=== PATIENT | female | born 1995 | race Caucasian/White ===

== ENCOUNTER → 2018-02-02 | Outpatient (REF) | payer OTHER ==
[2018-02-02 13:06] LABS: HCG, SERUM QUANTITATIVE < 1.0 MIU/ML
== END ==
LOC: M LAB REF 12:19
DX: N64.4 Mastodynia (principal)

== ENCOUNTER → 2019-03-29 | Outpatient (CLI) | payer OTHER ==
[~2019-03-29] MED LIST: ANUS2.5C2 EXT; DOCU10CA PO; DOCU5LIQ PO; HYDR1SOL PO; IBUP-1114 PO; IBUP100S44 PO; LANOOIN21 TOP; MAPA500T2 PO; MILK10SU PO; MOM30SS PO; MOTR200T44 PO; PRENTAB9 PO; STUATAB PO; TYLE80DR13 PO; VITAPRTA PO
[2019-03-29 11:26] LABS: BASO # 0.1 10^3/uL (0.0-0.2); BASO % 0.7 % (0.0-1.0); EOS # 0.2 10^3/uL (0.0-0.5); EOS % 2.2 % (0.0-3.0); HEMATOCRIT 37.7 % (36.0-47.0); LYMPH # 2.1 10^3/uL (1.5-5.0); LYMPH % 25.8 % (24.0-44.0); MEAN CORPUSCULAR HEMOGLOBIN 30.2 pg (27.0-33.0); MEAN CORPUSCULAR HGB CONC 34.5 g/dl (32.0-36.5); MEAN CORPUSCULAR VOLUME 87.5 fl (80.0-96.0); MONO # 0.5 10^3/uL (0.0-0.8); NEUTROPHILS # 5.3 10^3/uL (1.5-8.5); NEUTROPHILS % 64.9 % (36.0-66.0); PLATELET COUNT, AUTOMATED 288 10^3/uL (150-450); RED BLOOD COUNT 4.31 10^6/uL (4.00-5.40); WHITE BLOOD COUNT 8.1 10^3/uL (4.0-10.0)
[2019-03-29 12:39] LABS: HEPATITIS C VIRUS ABY INDEX 0.1 INDEX (<0.8); HIV 1&2 SCREEN CENTAUR NEGATIVE (NEGATIVE); RUBELLA IgG QUALITATIVE IMMUNE (IMMUNE)
[2019-03-29 13:26] LABS: CHLAMYDIA DNA AMPLIFICATION NEGATIVE (NEGATIVE); GC DNA AMPLIFICATION NEGATIVE (NEGATIVE)
== END ==
LOC: M SMT 09:07
PROVIDERS: ATTEND Specialist
DX: Z34.81 Encounter for supervision of other normal pregnancy, first trimester (principal); Z3A.00 Weeks of gestation of pregnancy not specified

== ENCOUNTER → 2019-06-08 | Outpatient (CLI) | payer OTHER ==
--- NOTE | 2019-06-08 11:19 | REP ---
OB ULTRASOUND: Real-time sonographic evaluation of the gravid uterus is performed. There is a single living intrauterine gestation with an estimated gestational age 18 weeks 5 days, EDC 11/04/2019. Today's measurements indicate appropriate growth. Biometry and Growth: BPD 45 mm = 19 weeks 3 days, 70th percentile HC 153 mm = 18 weeks 2 days, 37th percentile AC 142 mm = 19 weeks 4 days, 68th percentile FL 29 mm = 18 weeks 6 days, 54th percentile HC/AC ratio 1.08 within normal range. Estimated weight 276 grams, 63rd percentile. SEEN/GROSSLY UNREMARKABLE Lateral ventricles Yes Posterior fossa Yes Upper lip Yes Four-chamber heart Yes LVOT Yes RVOT Yes Stomach Yes Cord insertion Yes Three vessel cord Yes Kidneys Yes Bladder Yes Spine Yes Cervical length: Closed and measures 4.4 cm in length. heart rate: 153 beats per minute. position: Transverse with head toward the maternal left side. Placenta: Posterior and grade 0 with no previa or abruption. Amniotic fluid: Within normal limits. Electronically Signed by Loco Kaplan MD 06/08/2019 12:48 P
== END ==
LOC: M RAD 08:45
PROVIDERS: ATTEND Advanced Practice Midwife
DX: Z34.82 Encounter for supervision of other normal pregnancy, second trimester (principal); Z3A.18 18 weeks gestation of pregnancy

== ENCOUNTER → 2019-07-28 | Outpatient (CLI) | payer OTHER ==
[2019-07-28 13:34] LABS: BASO # 0.1 10^3/uL (0.0-0.2); BASO % 0.5 % (0.0-1.0); EOS # 0.2 10^3/uL (0.0-0.5); EOS % 1.5 % (0.0-3.0); HEMATOCRIT 32.4 % (36.0-47.0); HEMOGLOBIN 10.3 g/dl (12.0-15.5); LYMPH # 2.3 10^3/uL (1.5-5.0); LYMPH % 16.9 % (24.0-44.0); MEAN CORPUSCULAR HEMOGLOBIN 29.4 pg (27.0-33.0); MEAN CORPUSCULAR HGB CONC 31.8 g/dl (32.0-36.5); MEAN CORPUSCULAR VOLUME 92.6 fl (80.0-96.0); MONO # 0.7 10^3/uL (0.0-0.8); MONO % 5.4 % (0.0-5.0); NEUTROPHILS # 10.1 10^3/uL (1.5-8.5); PLATELET COUNT, AUTOMATED 299 10^3/uL (150-450); WHITE BLOOD COUNT 13.5 10^3/uL (4.0-10.0)
== END ==
LOC: M PLALAB 09:44
PROVIDERS: ATTEND Advanced Practice Midwife
DX: Z34.92 Encounter for supervision of normal pregnancy, unspecified, second trimester (principal)

== ENCOUNTER 2019-09-04 04:36 | Outpatient (CLI) | payer OTHER ==
[~2019-09-04] VITALS: Ht 152.4 cm; Wt 60.4 kg
[2019-09-04] MEDS ORDERED: TUMS750C5 PO (04:57)
[2019-09-04 05:00] VITALS: BP 92/50
[2019-09-04 05:31] LABS: APPEARANCE, URINE CLEAR (CLEAR); BACTERIA, URINE AUTO 1+ (NEGATIVE); BILIRUBIN, URINE AUTO NEGATIVE (NEGATIVE); BLOOD, URINE BLOOD NEGATIVE (NEGATIVE); COLOR, URINE YELLOW (YELLOW); GLUCOSE, URINE (UA) AUTO NEGATIVE (NEGATIVE); KETONE, URINE AUTO NEGATIVE (NEGATIVE); LEUKOCYTE ESTERASE, URINE AUTO TRACE (NEGATIVE); MUCUS, URINE SMALL (NEGATIVE); NITRITE, URINE AUTO NEGATIVE (NEGATIVE); PROTEIN, URINE AUTO NEGATIVE (NEGATIVE); RBC, URINE AUTO 1 /HPF (0-3); SQUAMOUS EPITHELIAL CELL UR AU 4 /HPF (0-6); UROBILINOGEN, URINE AUTO 0.2 mg/dL (0.0-2.0); WBC, URINE AUTO 5 /HPF (0-3)
--- NOTE | 2019-09-04 05:54 | IPNPDOC ---
Text Note Date of Service The patient was seen on 09/04/19. NOTE Outpatient 24yo QUEENIE 11/04/2019. Presents @ 31w2d with complaints of nausea, vomiting, diarrhea with low back pain that radiates to groin. Denies bleeding, LOF. Denies recent IC or unusual behavior Writhing in bed, moaning upon entry to room. Abdomen soft, gravid, nontender to palpation No UC on monitor FH 145, Cat I tracing Spec exam, cervix visually LTC. FFN obtained SVE LTC, presenting part OOP UA/C&S obtained. Labs ordered Renal scan ordered. VS,Fishbone, I+O VS, Fishbone, I+O Vital Signs Date Time Temp Pulse Resp B/P (MAP) Pulse Ox O2 Delivery O2 Flow Rate FiO2 09/04/19 05:00 98.4 113 18 92/50 (64) Ashley Whitehead CNM Sep 04, 2019 05:54
[2019-09-04 06:09] LABS: HEMATOCRIT 28.4 % (36.0-47.0); MEAN CORPUSCULAR HEMOGLOBIN 27.1 pg (27.0-33.0); MEAN CORPUSCULAR HGB CONC 31.7 g/dl (32.0-36.5); MEAN CORPUSCULAR VOLUME 85.5 fl (80.0-96.0); PLATELET COUNT, AUTOMATED 263 10^3/uL (150-450); RED BLOOD COUNT 3.32 10^6/uL (4.00-5.40); WHITE BLOOD COUNT 11.7 10^3/uL (4.0-10.0)
[2019-09-04] MEDS ORDERED: LACTATED RINGER'S 1000 ML IV ONE (06:15)
[2019-09-04 06:39] LABS: ALBUMIN 2.4 GM/DL (3.2-5.2); ALT/SGPT 16 U/L (12-78); BILIRUBIN,TOTAL 0.2 MG/DL (0.2-1.0); BLOOD UREA NITROGEN 5 MG/DL (7-18); CALCIUM LEVEL 8.1 MG/DL (8.5-10.1); CARBON DIOXIDE LEVEL 22 MEQ/L (21-32); CHLORIDE LEVEL 109 MEQ/L (98-107); CREATININE FOR GFR 0.47 MG/DL (0.55-1.30); GLOMERULAR FILTRATION RATE > 60.0 (>60); GLUCOSE, FASTING 89 MG/DL (70-100); POTASSIUM SERUM 3.9 MEQ/L (3.5-5.1); SODIUM LEVEL 139 MEQ/L (136-145); TOTAL PROTEIN 5.9 GM/DL (6.4-8.2)
[2019-09-04 06:55] VITALS: BP 99/53
--- NOTE | 2019-09-04 07:05 | REPVR ---
PROCEDURE INFORMATION: Exam: US Retroperitoneal Limited, Kidneys Exam date and time: 09/04/2019 6:30 AM Age: 24 years old Clinical indication: Abdominal pain; Flank; Other: Bilateral; ; Additional info: Back pain TECHNIQUE: Imaging protocol: Real-time ultrasound of the retroperitoneum with image documentation. Examination was focused on the kidneys. COMPARISON: No relevant prior studies available. FINDINGS: Right kidney: Moderate right hydronephrosis. Right kidney measures 11.7 cm in length. Asymmetric renal resistive indices with the left renal resistive index 0.75 in the right renal resistive index 0.59. Left kidney: Left kidney measures 11.1 cm in length. Mild left hydronephrosis. Uterus: Intrauterine gestation cephalic presentation with documented heart rate of 139 bpm. Bladder: Lobulated morphology of the nondistended bladder. Left ureteral jet demonstrated on color flow imaging. A right ureteral jet is not clearly visualized. IMPRESSION: Moderate right hydronephrosis. Electronically signed by: Joshua Montes De Oca On 09/04/2019 07:05:10 AM
[2019-09-04 07:35] VITALS: BP 104/67
[2019-09-04 10:44] LABS: HEMOGLOBIN A1c 4.7 %
== END 2019-09-04 08:27 | disposition home or self-care (01) ==
LOC: M LDO 04:36
PROVIDERS: ATTEND Advanced Practice Midwife
DX: O21.9 Vomiting of pregnancy, unspecified (principal); O99.613 Diseases of the digestive system complicating pregnancy, third trimester; R19.7 Diarrhea, unspecified

== ENCOUNTER → 2019-10-06 | Outpatient (REF) | payer OTHER ==
[~2019-10-06] MED LIST changes: +TUMS750C5 PO
== END ==
LOC: M SFHCWAGY 12:51
PROVIDERS: ATTEND Advanced Practice Midwife
DX: O09.43 Supervision of pregnancy with grand multiparity, third trimester (principal)

== ENCOUNTER → 2019-10-06 | Outpatient (CLI) | payer OTHER ==
--- NOTE | 2019-10-06 11:42 | REP ---
Clinical: Growth evaluation. Comparison: 06/08/2019 . Findings: Examination demonstrates a single live intrauterine in cephalic presentation. motion is identified by technologist. Placenta is noted posterior and grade I I without evidence for placenta previa or abruption. Amniotic fluid volume is normal. Gestational age by LMP 35 weeks 6 days with QUEENIE 11/04/2019 . Gestational age by current measurements 34 weeks 6 days with QUEENIE 11/11/2019 FHR equals 135 beats per minute. Estimated weight by current biometrical measurements 2670 grams ( 42nd percentile). Amniotic fluid index: 9.2 cm (7.7 - 24.9) Impression: single live advanced gestation in cephalic presentation demonstrating appropriate estimated weight.
== END ==
LOC: M WHC 10:35
PROVIDERS: ATTEND Advanced Practice Midwife
DX: O26.843 Uterine size-date discrepancy, third trimester (principal)

== ENCOUNTER 2019-10-08 17:30 | Outpatient (CLI) | payer OTHER ==
[~2019-10-08] VITALS: Ht 152.4 cm; Wt 60.4 kg
[2019-10-08 17:58] VITALS: BP 124/69
--- NOTE | 2019-10-08 19:05 | IPN ---
DATE: 10/08/2019 Herminia is a 24-year-old 8, para 4-0-3-4 at 36-1/7 weeks, estimated date of confinement (EDC) of 11/04/2019 based on last menstrual period, confirmed by first trimester ultrasound. She presents to labor and delivery today with report of contractions that started at 1430 and have become progressively more uncomfortable. She does deny leakage of fluid and vaginal bleeding. The fetus has been active. Her care was initiated at [facility] in the first trimester. course has been uncomplicated. OBSTETRICAL HISTORY: 1. March 2011: 40-6/7 weeks gestation, spontaneous vaginal delivery, 8 pound 13 ounce female. 2. May 2012: 39 weeks gestation, 8 pound 1 ounce male, spontaneous vaginal delivery. 3. July 2013: Miscarriage. 4. April: 38-2/7 weeks, 7 pound 15 ounce female, vaginal delivery following induction of labor. 5. April 2015: Spontaneous miscarriage. 6. January 2016: 38+ weeks, 6 pound 15 ounce male, spontaneous vaginal delivery. 7. January 2018: Spontaneous miscarriage. OBSTETRIC LABS: O positive, antibody screen, rubella immune, VDRL nonreactive. Urine culture no growth. Hepatitis B surface antigen negative, HIV negative. Hepatitis C antibody nonreactive. Gonorrhea and chlamydia negative. She had a normal gestational diabetic screening and her group B Streptococcus (GBS) is negative. PAST MEDICAL HISTORY: Childhood varicella. SURGERIES: Appendectomy. FAMILY HISTORY: Diabetes, heart disease and kidney disease. The patient is . She reports she is a nonsmoker. Denies alcohol and drug use. She does have a history of chlamydia in the past. She denies abuse, physical, sexual and emotional. ALLERGIES: No known drug allergies. PREMEDICATION: - vitamins OBJECTIVE: Temperature 99.4, pulse 104, respiration 18, blood pressure is 124/69. She is alert and oriented times three and she is talkative. heart rate is 155 with moderate variability, positive accelerations, negative decelerations. She has contraction every 2-6 minutes. They do palpate mild Sterile vaginal exam unchanged from office exam two days ago, 2 cm dilated, 50% effaced, -2 station, very posterior. ASSESSMENT: Intrauterine at 36-1/7 weeks. heart rate category one and not in active labor. PLAN: Discharge the patient home. She is to keep her next scheduled visit. I did review access to care, signs and symptoms of active labor, movement counts and danger signs to report. The patient has had her questions answered and is agreeable to discharge.
== END 2019-10-08 18:45 | disposition home or self-care (01) ==
LOC: M LDO 17:30
PROVIDERS: ATTEND Advanced Practice Midwife
DX: O47.03 False labor before 37 completed weeks of gestation, third trimester (principal); Z3A.36 36 weeks gestation of pregnancy

== ENCOUNTER 2019-10-23 17:30 | Inpatient (IN) | payer OTHER ==
[2019-10-23] VITALS (12 sets, daily range): BP systolic 109–122; BP diastolic 60–75
[~2019-10-23] VITALS: Ht 152.4 cm; Wt 62.1 kg
[2019-10-23] MEDS: LR 1,000 ML IV SCH ×2 (20:15→22:51)
[2019-10-23 20:46] LABS: HEMATOCRIT 32.8 % (36.0-47.0); HEMOGLOBIN 9.9 g/dl (12.0-15.5); MEAN CORPUSCULAR HEMOGLOBIN 23.3 pg (27.0-33.0); MEAN CORPUSCULAR HGB CONC 30.2 g/dl (32.0-36.5); MEAN CORPUSCULAR VOLUME 77.2 fl (80.0-96.0); PLATELET COUNT, AUTOMATED 324 10^3/uL (150-450); RED BLOOD COUNT 4.25 10^6/uL (4.00-5.40); WHITE BLOOD COUNT 16.2 10^3/uL (4.0-10.0)
--- NOTE | 2019-10-23 20:51 | HPE ---
DATE OF ADMISSION: 10/23/2019 A 24-year-old G8, P4-0-3-4 female at 38-2/7 weeks gestations by last menstrual period (LMP) consistent with 8-week ultrasound, estimated date of confinement (EDC) 11/04/2019, presents with regular contractions every 3-5 minutes since 5:30 a.m. on the day of admission. The contractions increased in intensity. She denies vaginal bleeding. There is good movement. CARE: With [facility]. She had no complications. OBSTETRICAL HISTORY: 1. In 2010, 41-week vaginal delivery, 8-pound 13-ounce female . 2. In 2011, A 39-week vaginal delivery 8-pound, 1-ounce male infant. 3. In 2013, a 37-week vaginal delivery, 7-pound 15-ounce female . 4. In 2015, 37-week vaginal delivery, 6-pound 15-ounce male . She has had three miscarriages as well. PAST MEDICAL HISTORY: Noncontributory. SURGICAL HISTORY: Appendectomy. ALLERGIES: None. SOCIAL HISTORY: Patient lives in [place], [place]. Patient is . She denies cigarettes, alcohol, or drug use. FAMILY HISTORY: Noncontributory. PHYSICAL EXAMINATION: Blood pressure is 121/74, pulse 106, afebrile. She appears uncomfortable. Head and neck exam normal. Lungs clear. Heart regular rate and rhythm. Abdomen nontender, gravid. heart tone category 1. Contractions every 3-5 minutes, moderate. Sterile vaginal exam: She is 4 cm, 70%, -2, posterior, soft, vertex. Extremities nontender. LABORATORY DATA: GBS negative. HIV negative. Diabetes screen normal. ASSESSMENT: A 24-year-old G8, P4-0-3-4 female at 38-2/7 weeks gestation presents in labor. PLAN: Patient is admitted on 10/23/2019.
[2019-10-23] MEDS ORDERED: FENTANYL 2MCG/ML ROPIVACAINE 0.2% IN 0.9% NACL 100ML IVBAG As Ordered ONE (21:13)
[2019-10-23] MEDS ORDERED: EPIDURAL COMMENT XX SCH (23:00)
[2019-10-23] MEDS ORDERED: ONDANSETRON 4MG/2ML VIAL (J2405) IV PRN (23:00)
[2019-10-23] MEDS ORDERED: EPIDURAL/PCA KEYS XX PRN (23:00)
[2019-10-23] MEDS ORDERED: LACTATED RINGER'S 1000 ML IV PRN (23:00)
[2019-10-23] MEDS ORDERED: OXYTOCIN DRIP 30 UNITS in IV 1 EA IV SCH (23:00)
[2019-10-23] MEDS ORDERED: NALOXONE INJ 0.4 MG/1 ML VIAL (J2310) IV PRN (23:00)
[2019-10-23] MEDS ORDERED: REFRIGERATOR IV KEYS XX PRN (23:00)
[2019-10-23] MEDS ORDERED: ePHEDrine SULFATE 25 MG/5 ML(5MG/ML) SYRINGE IV PRN (23:00)
[2019-10-23] MEDS ORDERED: diphenhydrAMINE 50MG/ML VIAL (J1200) IV PRN (23:00)
[2019-10-23] MEDS ORDERED: FENTANYL/ROPIVACAINE/NACL BAG 100 ML EPIDURAL SCH (23:00)
[2019-10-24] VITALS (24 sets, daily range): BP systolic 86–118; BP diastolic 50–68
[2019-10-24] MEDS: LR 1,000 ML IV SCH (05:00)
[2019-10-24] MEDS ORDERED: DOCUSATE SODIUM 100 MG CAP PO PRN (09:00)
[2019-10-24] MEDS ORDERED: METHYLERGONOVINE MALEATE 0.2 MG TAB PO PRN (09:00)
[2019-10-24] MEDS ORDERED: OXYTOCIN DRIP 30 UNITS in IV 1 EA IV ONE (09:00)
[2019-10-24] MEDS ORDERED: IBUPROFEN 600 MG TAB PO PRN (09:00)
[2019-10-24] MEDS ORDERED: DIBUCAINE 1% OINTMENT 30GM TOP PRN (09:00)
[2019-10-24] MEDS ORDERED: ONDANSETRON 4MG/2ML VIAL (J2405) IV PRN (09:00)
[2019-10-24] MEDS ORDERED: RHOGAM 300 MCG (1500 IU) INJ (J2790) IM SCH (09:00)
[2019-10-24] MEDS ORDERED: MEASLES,MUMPS,RUBELLA VACCINE INJ (MMR-II) (90707) SC SCH (09:00)
[2019-10-24] MEDS ORDERED: ACETAMINOPHEN 500 MG TAB PO PRN (09:00)
[2019-10-24] MEDS ORDERED: ACETAMINOPHEN TAB 650MG DOSE (2X325MG) PO PRN (09:00)
[2019-10-24] MEDS: PRENATAL VITAMINS CHEWABLE TABLET PO SCH (13:08)
[2019-10-24] MEDS: IBUPROFEN 800 MG TAB PO PRN (16:55)
--- NOTE | 2019-10-24 18:11 | DN ---
DATE: 10/24/2019 PREDELIVERY DIAGNOSIS: 38-3/7 weeks gestation, in labor. POSTDELIVERY DIAGNOSIS: Delivered. PROCEDURE: Spontaneous vaginal delivery. RETURNED GOODS SORTER: Jabier Quintero MD ANESTHESIA: Epidural. ESTIMATED BLOOD LOSS: 300 mL. FINDINGS: A 7-pound, 11-ounce female , scores 8 and 9. DELIVERY SUMMARY: After a short second stage of five minute, the patient had spontaneous delivery of a 7-pound, 11-ounce female , scores 8 and 9, under epidural anesthesia. There was no nuchal cord. The shoulders delivered with ease. The was handed to the mother and cried immediately. The cord was doubly clamped and cut. The placenta delivered spontaneously and appeared to be intact. The patient received IV pitocin immediately after delivery of the placenta. There were no vaginal lacerations. Sponge counts were correct.
[2019-10-25] MEDS: IBUPROFEN 800 MG TAB PO PRN (03:12)
[2019-10-25 06:00] VITALS: BP 96/55
[2019-10-25] MEDS: PRENATAL VITAMINS CHEWABLE TABLET PO SCH (08:16)
[2019-10-25] MEDS ORDERED: ACET-683 PO (12:25)
[2019-10-25] MEDS ORDERED: IBUP80TA PO (12:25)
== END 2019-10-25 13:00 | disposition home or self-care (01) | DRG 560 ==
LOC: M LDO 17:30 → M LDI 20:09 → M PED 10-24 14:03
PROVIDERS: ADMIT Specialist; ATTEND Specialist
PROC: 10E0XZZ Delivery of Products of Conception, External Approach (ICD-10-PCS; principal; 2019-10-24)
DX: O80 Encounter for full-term uncomplicated delivery (principal); Z37.0 Single live birth; Z3A.38 38 weeks gestation of pregnancy

== ENCOUNTER 2020-02-23 07:00 | Day surgery (SDC) | payer OTHER ==
[~2020-02-23 07:00] MED LIST changes: +ACET-683 PO; +BUPIVACAINE HCL 0.25% 10ML VIAL ONE; +IBUP80TA PO; +KETOROLAC 60MG 2ML VIAL ONE; +LIDOCAINE 2% 100MG/5ML SDV (FOR ANES.) ONE; +MIDAZOLAM INJ 2MG/2ML VIAL (J2250 PER 1MG) ONE; +NALOXONE INJ 0.4MG/1ML VIAL (J2310 PER 1MG) ONE; +ONDANSETRON 4MG/2ML VIAL ONE; +PHENYLephrine HCL 500 MCG/5 ML (100MCG/ML) SYRINGE (J2370) ONE; +ROCURONIUM BROMIDE 50 MG/5 ML VIAL ONE; +SUGAMMADEX SODIUM 500 MG/5 ML VIAL (BRIDION) ONE; +dexameTHASONE 4 MG/ML 1ML VIAL (J1100 PER 1MG) ONE; +ePHEDrine SULFATE 25 MG/5 ML(5MG/ML) SYRINGE ONE; +fentaNYL 250 MCG/5 ML INJECTION (J3010) ONE; +propofoL 200 MG/20 ML VIAL ONE
[2020-02-23] MEDS ORDERED: PERCOCET 5MG/325MG TAB As Ordered ONE ×2 (08:43→09:02)
[2020-02-23] MEDS ORDERED: fentaNYL 100 MCG/2 ML INJECTION (J3010) As Ordered ONE (08:43)
[2020-04-16 01:00] LABS: HEMATOCRIT 35.5 % (36.0-47.0); HEMOGLOBIN 11.1 g/dl (12.0-15.5); MEAN CORPUSCULAR HEMOGLOBIN 24.8 pg (27.0-33.0); MEAN CORPUSCULAR HGB CONC 31.3 g/dl (32.0-36.5); MEAN CORPUSCULAR VOLUME 79.4 fl (80.0-96.0); PLATELET COUNT, AUTOMATED 342 10^3/uL (150-450); RED BLOOD COUNT 4.47 10^6/uL (4.00-5.40); WHITE BLOOD COUNT 6.5 10^3/uL (4.0-10.0)
--- NOTE | 2020-04-20 11:16 | RO ---
DATE OF OPERATION: 02/23/2020 PREOPERATIVE DIAGNOSIS: Undesired fertility. POSTOPERATIVE DIAGNOSIS: Undesired fertility. PROCEDURE: Laparoscopic bilateral salpingectomy. SURGEON: Jabier Quintero MD ANESTHESIA: General endotracheal. ESTIMATED BLOOD LOSS: 10 mL. URINE OUTPUT: Not assessed. FINDINGS: Normal pelvis including uterus, fallopian tubes, and ovaries. Normal upper abdomen. DESCRIPTION OF PROCEDURE: The patient was taken to the operating room where general endotracheal anesthesia was induced. She was prepped and draped in sterile fashion in the dorsal lithotomy position. The patient had emptied her bladder just prior to the procedure. A sponge stick was placed in the vagina and used as a manipulator. A periumbilical incision was made with the scalpel. A Veress needle was placed through this incision while tenting up the skin of the abdomen. Intraabdominal location of the Veress needle was assessed using a saline-filled syringe. A pneumoperitoneum was created. The Veress needle was removed. A 5-mm port was placed using VisiPort. The 5 and 8-mm suprapubic ports were placed under direct visualization without difficulty. The grasping instrument was used to elevate each fallopian tube. Broad ligament attachments to the fallopian tubes were coagulated and incised with the LigaSure device. Both tubes were amputated near its origin. Both fallopian tubes were removed through the suprapubic port. The pneumoperitoneum was released. All instruments were removed. The skin was closed with 4-0 Monocryl subcuticular sutures. Sponge, instrument, and needle counts were correct. The patient was extubated and went to recovery room in stable condition. MISTY
== END 2020-02-23 11:23 | disposition home or self-care (01) ==
LOC: M SDC 07:00
PROVIDERS: ATTEND Specialist
DX: Z30.2 Encounter for sterilization (principal)
CPT/HCPCS: 58661; 85027; 88302; J1100; J1885; J2250; J2310; J2370; J2405; J3010

== ENCOUNTER → 2021-09-06 | Outpatient (REF) | payer OTHER ==
[~2021-09-06] MED LIST changes: -BUPIVACAINE HCL 0.25% 10ML VIAL ONE; -KETOROLAC 60MG 2ML VIAL ONE; -LIDOCAINE 2% 100MG/5ML SDV (FOR ANES.) ONE; -MIDAZOLAM INJ 2MG/2ML VIAL (J2250 PER 1MG) ONE; -NALOXONE INJ 0.4MG/1ML VIAL (J2310 PER 1MG) ONE; -ONDANSETRON 4MG/2ML VIAL ONE; -PHENYLephrine HCL 500 MCG/5 ML (100MCG/ML) SYRINGE (J2370) ONE; -ROCURONIUM BROMIDE 50 MG/5 ML VIAL ONE; -SUGAMMADEX SODIUM 500 MG/5 ML VIAL (BRIDION) ONE; -dexameTHASONE 4 MG/ML 1ML VIAL (J1100 PER 1MG) ONE; -ePHEDrine SULFATE 25 MG/5 ML(5MG/ML) SYRINGE ONE; -fentaNYL 250 MCG/5 ML INJECTION (J3010) ONE; -propofoL 200 MG/20 ML VIAL ONE
== END ==
LOC: M PLALAB 14:56
PROVIDERS: ATTEND Specialist
DX: Z12.4 Encounter for screening for malignant neoplasm of cervix (principal); Z53.9 Procedure and treatment not carried out, unspecified reason

== ENCOUNTER → 2021-11-07 | Outpatient (REF) | payer OTHER | LOC: M SFHCWAGY 17:24 | PROVIDERS: ATTEND Specialist | DX: Z01.419 Encounter for gynecological examination (general) (routine) without abnormal findings (principal); Z12.4 Encounter for screening for malignant neoplasm of cervix ==

== ENCOUNTER → 2022-10-24 | Outpatient (REF) | payer OTHER ==
[2022-10-24 13:34] LABS: APPEARANCE, URINE CLOUDY (CLEAR); BACTERIA, URINE AUTO 2+ (NEGATIVE); BILIRUBIN, URINE AUTO NEGATIVE (NEGATIVE); BLOOD, URINE BLOOD 2+ (NEGATIVE); COLOR, URINE YELLOW (YELLOW); GLUCOSE, URINE (UA) AUTO NEGATIVE (NEGATIVE); KETONE, URINE AUTO NEGATIVE (NEGATIVE); LEUKOCYTE ESTERASE, URINE AUTO 3+ (NEGATIVE); MUCUS, URINE SMALL (NEGATIVE); NITRITE, URINE AUTO NEGATIVE (NEGATIVE); PROTEIN, URINE AUTO 1+ mg/dL (NEGATIVE); RBC, URINE AUTO 16 /HPF (0-3); SPECIFIC GRAVITY URINE AUTO 1.011 (1.002-1.035); SQUAMOUS EPITHELIAL CELL UR AU 11 /HPF (0-6); UROBILINOGEN, URINE AUTO 0.2 mg/dL (0.0-2.0); WBC, URINE AUTO 83 /HPF (0-3)
== END ==
LOC: M LAB REF 12:20
PROVIDERS: ATTEND Physician Assistant
DX: N39.0 Urinary tract infection, site not specified (principal)